=== PATIENT | female | born 1995 | race Caucasian/White ===

== ENCOUNTER 2019-05-17 18:51 | Emergency (ER) | payer BC, MEDICAID, OTHER ==
[~2019-05-17] VITALS: Ht 165.1 cm; Wt 52.0 kg
[~2019-05-17 18:51] MED LIST: BCP; HYDR-3965 PO; HYDR-4383 PO; VAL5T PO
[2019-05-17 19:42] LABS: BASOPHILS # (AUTO) 0.1 X10'3 (0-0.2); BASOPHILS % (AUTO) 1.1 % (0-1); EOSINOPHILS # (AUTO) 0.1 X10'3 (0-0.9); EOSINOPHILS % (AUTO) 1.3 % (0-6); HEMATOCRIT 41.7 % (35.0-45.0); HEMOGLOBIN 14.3 g/dl (12.0-16.0); LYMPHOCYTES # (AUTO) 2.4 X10'3 (1.1-4.8); LYMPHOCYTES % (AUTO) 29.6 % (21-51); MEAN CORPUSCULAR HEMOGLOBIN 31.5 PG (27.0-31.0); MEAN CORPUSCULAR HGB CONC 34.2 g/dL (33.0-36.5); MEAN CORPUSCULAR VOLUME 92.1 FL (78-98); MEAN PLATELET VOLUME 9.2 FL (7.4-10.4); MONOCYTES # (AUTO) 0.9 X10'3 (0-0.9); MONOCYTES % (AUTO) 11.7 % (2-12); NEUTROPHILS # (AUTO) 4.6 X10'3 (1.8-7.7); NEUTROPHILS % (AUTO) 56.3 % (42-75); PLATELET COUNT 268 X10'3 (140-440); RED BLOOD COUNT 4.53 X10'6 (4.20-5.60); RED CELL DISTRIBUTION WIDTH 12.7 % (11.5-14.5); WHITE BLOOD COUNT 8.1 X10'3 (4.5-11.0)
[2019-05-17 19:49] LABS: URINE HCG POSITIVE (NEG)
[2019-05-17] MEDS ORDERED: ondansetron/PF 4mg/2ml inj IV ONE (20:00)
[2019-05-17] MEDS ORDERED: normal saline 1000ML IV soln IVB ONE (20:00)
--- NOTE | 2019-05-17 20:04 | NUR ---
CALLED [facility] AT 20:04. SHE WILL BE COMING MAIA
[2019-05-17] MEDS: morphine 4 MG/ML inj SYRINge IV PRN ×2 (20:08→21:34)
[2019-05-17 20:12] LABS: CLARITY,URINE CLEAR (Clear); COLOR,URINE YELLOW (Yellow); GLUCOSE, URINE NEGATIVE (Neg); KETONES,URINE NEGATIVE (Neg); LEUKOCYTE ESTERASE ,URINE TRACE (Neg); NITRITES, URINE NEGATIVE (Neg); OCCULT BLOOD,URINE NEGATIVE (Neg); PROTEIN,URINE NEGATIVE (Neg); UROBILINOGEN,URINE 0.2 E.U/dL (0.2-1.0)
[2019-05-17 20:15] LABS: ALANINE AMINOTRANSFERASE 25 U/L (12-78); ALBUMIN 4.2 G/DL (3.4-5.0); ALBUMIN/GLOBULIN RATIO 1.4 (1.1-1.5); ALKALINE PHOSPHATASE 86 IU/L (46-116); ANION GAP 9 (8-16); ASPARTATE AMINO TRANSFERASE 18 U/L (10-37); BILIRUBIN,TOTAL 0.3 MG/DL (0.1-1.0); BLOOD UREA NITROGEN 14 MG/DL (7-18); CHLORIDE 105 MMOL/L (99-107); GLUCOSE 76 MG/DL (70-104); LIPASE 86 U/L (73-393); POTASSIUM 3.8 MMOL/L (3.5-5.1); SODIUM 141 MMOL/L (135-145); TOTAL PROTEIN 7.3 G/DL (6.4-8.2); eGFR > 90 ML/MIN
--- NOTE | 2019-05-17 20:16 | NUR ---
REPORTS PAIN COMES ON SUDDEN AND REALLY STRONG, SHARP/STABBING 8/10 PAIN TO RLQ AND INTO BACK. STARTED 1 MONTH AGO BUT WORSENED EARLY THIS WEEK.
[2019-05-17 20:19] LABS: UA COLLECTION TYPE CLN CATCH MIDSTREAM
[2019-05-17 20:40] LABS: BACTERIA,URINE FEW /HPF (Neg); RBC,URINE 0-2 /HPF (0-2); WBC,URINE 0-4 /HPF (0-4)
[2019-05-17 20:40] LABS: BETA HCG,QUANTITATIVE 762 mIU/ml
[2019-05-17 20:41] LABS: CAL OXALATE CRYSTALS 1+ /HPF (NEGATIVE); MUCUS STRANDS MANY /LPF (Neg); SQUAMOUS EPITHELIAL CELL,UR MANY /LPF (FEW)
[2019-05-17 20:43] LABS: YEAST FEW /HPF (NEGATIVE)
[2019-05-17] MEDS ORDERED: morphine 4 MG/ML inj SYRINge IV ONE ×4 (21:30→22:40)
--- NOTE | 2019-05-17 22:09 | NUR ---
CALLED NURIS MCCRACKEN AT 22:08. WAITING FOR DOC TO DOC CONSULT
--- NOTE | 2019-05-17 22:42 | NUR ---
NURIS ACCEPTED TRANS ED. TO ED. AT 22:43
--- NOTE | 2019-05-17 22:43 | NUR ---
CALLED [facility] AT 22:43 WITH ETA 30 MINS
[2019-05-17 23:00] VITALS: BP 139/82
== END 2019-05-17 23:03 | disposition short-term general hospital (02) ==
LOC: ER 18:52
DX: O26.891 Other specified pregnancy related conditions, first trimester (principal); N89.8 Other specified noninflammatory disorders of vagina; R10.31 Right lower quadrant pain; O99.321 Drug use complicating pregnancy, first trimester; O99.331 Smoking (tobacco) complicating pregnancy, first trimester; F17.200 Nicotine dependence, unspecified, uncomplicated; F12.90 Cannabis use, unspecified, uncomplicated; Z87.442 Personal history of urinary calculi; Z79.899 Other long term (current) drug therapy; Z3A.01 Less than 8 weeks gestation of pregnancy
CPT/HCPCS: 36415; 76775; 76801; 76830; 80053; 81001; 81025; 83690; 84702; 85025; 85610; 96374; 96375; 96376; 99285; J2270; J2405; J7030

== ENCOUNTER 2022-09-09 15:41 | Emergency (ER) | payer BC, MEDICAID ==
[~2022-09-09] VITALS: Ht 165.1 cm; Wt 63.0 kg
[~2022-09-09 15:41] MED LIST changes: +DIAZ5TAB22 PO; -VAL5T PO
[2022-09-09 16:25] LABS: BASOPHILS # (AUTO) 0.1 X10'3 (0-0.2); BASOPHILS % (AUTO) 0.6 % (0-1); EOSINOPHILS # (AUTO) 0.1 X10'3 (0-0.9); EOSINOPHILS % (AUTO) 1.4 % (0-6); HEMATOCRIT 45.8 % (35.0-45.0); HEMOGLOBIN 15.5 g/dl (12.0-16.0); LYMPHOCYTES # (AUTO) 1.9 X10'3 (1.1-4.8); LYMPHOCYTES % (AUTO) 23.3 % (21-51); MEAN CORPUSCULAR HEMOGLOBIN 30.1 PG (27.0-31.0); MEAN CORPUSCULAR HGB CONC 33.9 g/dL (33.0-36.5); MEAN CORPUSCULAR VOLUME 88.8 FL (78-98); MEAN PLATELET VOLUME 8.1 FL (7.4-10.4); MONOCYTES # (AUTO) 0.7 X10'3 (0-0.9); MONOCYTES % (AUTO) 8.8 % (2-12); NEUTROPHILS # (AUTO) 5.3 X10'3 (1.8-7.7); NEUTROPHILS % (AUTO) 65.9 % (42-75); PLATELET COUNT 337 X10'3 (140-440); RED BLOOD COUNT 5.16 X10'6 (4.20-5.60); RED CELL DISTRIBUTION WIDTH 12.3 % (11.5-14.5)
[2022-09-09 16:28] LABS: CLARITY,URINE CLEAR (Clear); COLOR,URINE YELLOW (Yellow); GLUCOSE, URINE NEGATIVE (Neg); KETONES,URINE NEGATIVE (Neg); LEUKOCYTE ESTERASE ,URINE NEGATIVE (Neg); NITRITES, URINE NEGATIVE (Neg); OCCULT BLOOD,URINE TRACE-INTACT (Neg); PROTEIN,URINE NEGATIVE (Neg); URINE HCG NEGATIVE (NEG); UROBILINOGEN,URINE 0.2 E.U/dL (0.2-1.0)
[2022-09-09 16:32] LABS: UA COLLECTION TYPE CLN CATCH MIDSTREAM
[2022-09-09 16:33] LABS: BACTERIA,URINE NONE SEEN /HPF (Neg); MUCUS STRANDS NONE SEEN /LPF (Neg); RBC,URINE 0-2 /HPF (0-2); SQUAMOUS EPITHELIAL CELL,UR FEW /LPF (FEW); WBC,URINE NONE SEEN /HPF (0-4)
[2022-09-09 16:41] LABS: ALANINE AMINOTRANSFERASE 20 U/L (12-78); ALBUMIN 4.7 G/DL (3.4-5.0); ALBUMIN/GLOBULIN RATIO 1.3 (1.1-1.5); ALKALINE PHOSPHATASE 88 IU/L (46-116); ANION GAP 8 (8-16); ASPARTATE AMINO TRANSFERASE 20 U/L (10-37); BILIRUBIN,TOTAL 0.5 MG/DL (0.1-1.0); BLOOD UREA NITROGEN 13 MG/DL (7-18); BUN/CREATININE RATIO 14.8 (6.6-38.0); CALCIUM 9.9 MG/DL (8.5-10.1); CHLORIDE 102 MMOL/L (99-107); CREATININE 0.88 MG/DL (0.40-0.90); GLUCOSE 96 MG/DL (70-104); LIPASE 112 U/L (73-393); POTASSIUM 3.5 MMOL/L (3.5-5.1); SODIUM 138 MMOL/L (135-145); TOTAL CARBON DIOXIDE 27.9 MMOL/L (24-32); TOTAL PROTEIN 8.2 G/DL (6.4-8.2); eGFR 77 ML/MIN
[2022-09-09] MEDS ORDERED: HYDROcodone/acetaminophen 10/325mg tab PO ONE (17:25)
[2022-09-09] MEDS ORDERED: dicyclomine 10 MG capsule PO ONE (18:55)
[2022-09-09] MEDS ORDERED: OXYC-145 PO (19:32)
[2022-09-09 19:51] VITALS: BP 133/96
== END 2022-09-09 19:53 | disposition home or self-care (01) ==
LOC: ER 15:43
DX: N20.0 Calculus of kidney (principal); N28.1 Cyst of kidney, acquired; K57.90 Diverticulosis of intestine, part unspecified, without perforation or abscess without bleeding; R10.30 Lower abdominal pain, unspecified; R07.1 Chest pain on breathing; F12.90 Cannabis use, unspecified, uncomplicated
CPT/HCPCS: 36415; 74176; 80053; 81001; 81025; 83690; 85025; 99284

== ENCOUNTER 2022-11-01 14:43 | Emergency (ER) | payer MEDICAID ==
[~2022-11-01] VITALS: Ht 165.1 cm; Wt 59.6 kg
[~2022-11-01 14:43] MED LIST changes: +OXYC-145 PO
[2022-11-01 18:48] LABS: MONOCYTES # (AUTO) 0.7 X10'3 (0-0.9); WHITE BLOOD COUNT 7.2 X10'3 (4.5-11.0)
[2022-11-01 18:50] LABS: BASOPHILS % (AUTO) 0.3 % (0-1); EOSINOPHILS % (AUTO) 0.4 % (0-6); HEMATOCRIT 45.3 % (35.0-45.0); HEMOGLOBIN 15.2 g/dl (12.0-16.0); LYMPHOCYTES # (AUTO) 1.8 X10'3 (1.1-4.8); LYMPHOCYTES % (AUTO) 25.2 % (21-51); MEAN CORPUSCULAR HEMOGLOBIN 30.1 PG (27.0-31.0); MEAN CORPUSCULAR HGB CONC 33.6 g/dL (33.0-36.5); MEAN CORPUSCULAR VOLUME 89.6 FL (78-98); MEAN PLATELET VOLUME 8.3 FL (7.4-10.4); MONOCYTES % (AUTO) 9.9 % (2-12); NEUTROPHILS # (AUTO) 4.6 X10'3 (1.8-7.7); NEUTROPHILS % (AUTO) 64.2 % (42-75); PLATELET COUNT 391 X10'3 (140-440); RED BLOOD COUNT 5.05 X10'6 (4.20-5.60); RED CELL DISTRIBUTION WIDTH 13.2 % (11.5-14.5)
--- NOTE | 2022-11-01 18:55 | NUR ---
ULTRASOUND IN W/ PT
[2022-11-01 19:06] LABS: ALANINE AMINOTRANSFERASE 12 U/L (12-78); ALBUMIN 5.2 G/DL (3.4-5.0); ALBUMIN/GLOBULIN RATIO 1.5 (1.1-1.5); ALKALINE PHOSPHATASE 75 IU/L (46-116); ANION GAP 14 (8-16); ASPARTATE AMINO TRANSFERASE 14 U/L (10-37); BILIRUBIN,TOTAL 0.6 MG/DL (0.1-1.0); BLOOD UREA NITROGEN 9 MG/DL (7-18); BUN/CREATININE RATIO 12.7 (10.0-20.0); CHLORIDE 103 MMOL/L (99-107); CREATININE 0.71 MG/DL (0.40-0.90); GLUCOSE 91 MG/DL (70-104); LIPASE 50 U/L (73-393); POTASSIUM 3.3 MMOL/L (3.5-5.1); SODIUM 142 MMOL/L (135-145); TOTAL CARBON DIOXIDE 25.1 MMOL/L (24-32); TOTAL PROTEIN 8.6 G/DL (6.4-8.2); eGFR > 90 ML/MIN
[2022-11-01 19:16] LABS: CLARITY,URINE CLEAR (Clear); COLOR,URINE YELLOW (Yellow); GLUCOSE, URINE NEGATIVE (Neg); KETONES,URINE 40 mg/dl (Neg); LEUKOCYTE ESTERASE ,URINE TRACE (Neg); NITRITES, URINE NEGATIVE (Neg); OCCULT BLOOD,URINE SMALL (Neg); PROTEIN,URINE NEGATIVE (Neg); URINE HCG NEGATIVE (NEG); UROBILINOGEN,URINE 0.2 E.U/dL (0.2-1.0)
[2022-11-01 19:17] LABS: UA COLLECTION TYPE CLN CATCH MIDSTREAM
[2022-11-01 19:23] LABS: BACTERIA,URINE 1+ /HPF (Neg); SQUAMOUS EPITHELIAL CELL,UR FEW /LPF (FEW)
[2022-11-01] MEDS ORDERED: morphine 4 MG/ML inj SYRINge IV ONE (19:35)
[2022-11-01] MEDS ORDERED: ondansetron/PF 4mg/2ml inj IV ONE (19:35)
[2022-11-01] MEDS ORDERED: LORazepam 2 mg/ml vial IV ONE (19:50)
[2022-11-01] MEDS ORDERED: ketorolac trometh. 30mg/ml inj. IV ONE ×2 (20:25→21:30)
[2022-11-01] MEDS ORDERED: iohexol 300mg/ml 100ml inj. ONE (20:39)
[2022-11-01] MEDS ORDERED: ibuprofen tablet 400 MG TABLET PO ONE (21:05)
[2022-11-01 21:11] VITALS: BP 133/87
[2022-11-01] MEDS ORDERED: diphenhydrAMINE 50 mg/ml inj IV ONE (21:30)
[2022-11-01] MEDS ORDERED: HYDROcodone/acetaminophen 10/325mg tab PO ONE (21:30)
[2022-11-01] MEDS ORDERED: OXYC-150 PO (21:34)
[2022-11-01] MEDS ORDERED: NITR100C6 PO (21:34)
[2022-11-01] MEDS ORDERED: IBUP-1986 PO (21:34)
== END 2022-11-01 21:56 | disposition home or self-care (01) ==
LOC: ER 14:43
DX: R19.09 Other intra-abdominal and pelvic swelling, mass and lump (principal); N30.00 Acute cystitis without hematuria; Z87.442 Personal history of urinary calculi; F12.10 Cannabis abuse, uncomplicated; Z88.6 Allergy status to analgesic agent; Z79.899 Other long term (current) drug therapy
CPT/HCPCS: 36415; 72193; 76830; 76856; 80053; 81001; 81025; 83690; 85025; 87077; 87088; 87186; 87210; 93976; 96374; 96375; 99285; J1200; J1885; J2060; J2270; J2405; J3490; Q9967

== ENCOUNTER 2022-11-28 14:48 | Emergency (ER) | payer MEDICAID ==
[~2022-11-28] VITALS: Ht 162.6 cm; Wt 56.8 kg
[~2022-11-28 14:48] MED LIST changes: +IBUP-1986 PO; +NITR100C6 PO; +OXYC-150 PO
[2022-11-28 16:06] LABS: CLARITY,URINE SLIGHTLY CLOUDY (Clear); COLOR,URINE YELLOW (Yellow); GLUCOSE, URINE NEGATIVE (Neg); KETONES,URINE NEGATIVE (Neg); LEUKOCYTE ESTERASE ,URINE NEGATIVE (Neg); NITRITES, URINE NEGATIVE (Neg); OCCULT BLOOD,URINE MODERATE (Neg); PROTEIN,URINE TRACE mg/dl (Neg); UROBILINOGEN,URINE 0.2 E.U/dL (0.2-1.0)
[2022-11-28 16:07] LABS: UA COLLECTION TYPE CLN CATCH MIDSTREAM; URINE HCG NEGATIVE (NEG)
[2022-11-28 16:30] LABS: BACTERIA,URINE FEW /HPF (Neg); TRANSITIONAL EPI CELLS,URINE FEW /HPF; WBC,URINE 0-4 /HPF (0-4)
[2022-11-28 16:31] LABS: SQUAMOUS EPITHELIAL CELL,UR MANY /LPF (FEW)
[2022-11-28] MEDS ORDERED: morphine 4 MG/ML inj SYRINge IM ONE (17:05)
[2022-11-28 17:33] LABS: BASOPHILS % (AUTO) 0.5 % (0-1); EOSINOPHILS # (AUTO) 0.1 X10'3 (0-0.9); HEMATOCRIT 43.1 % (35.0-45.0); HEMOGLOBIN 14.3 g/dl (12.0-16.0); LYMPHOCYTES # (AUTO) 1.3 X10'3 (1.1-4.8); LYMPHOCYTES % (AUTO) 13.9 % (21-51); MEAN CORPUSCULAR HEMOGLOBIN 29.5 PG (27.0-31.0); MEAN CORPUSCULAR HGB CONC 33.1 g/dL (33.0-36.5); MEAN CORPUSCULAR VOLUME 89.1 FL (78-98); MEAN PLATELET VOLUME 8.6 FL (7.4-10.4); MONOCYTES # (AUTO) 0.9 X10'3 (0-0.9); MONOCYTES % (AUTO) 9.2 % (2-12); NEUTROPHILS # (AUTO) 7.3 X10'3 (1.8-7.7); NEUTROPHILS % (AUTO) 75.4 % (42-75); PLATELET COUNT 343 X10'3 (140-440); RED BLOOD COUNT 4.84 X10'6 (4.20-5.60); RED CELL DISTRIBUTION WIDTH 12.6 % (11.5-14.5); WHITE BLOOD COUNT 9.7 X10'3 (4.5-11.0)
[2022-11-28 17:47] LABS: ALANINE AMINOTRANSFERASE 22 U/L (12-78); ALBUMIN 4.9 G/DL (3.4-5.0); ALBUMIN/GLOBULIN RATIO 1.3 (1.1-1.5); ALKALINE PHOSPHATASE 82 IU/L (46-116); ANION GAP 11 (8-16); ASPARTATE AMINO TRANSFERASE 25 U/L (10-37); BILIRUBIN,TOTAL 0.4 MG/DL (0.1-1.0); CALCIUM 10.1 MG/DL (8.5-10.1); CHLORIDE 98 MMOL/L (99-107); CREATININE 1.15 MG/DL (0.40-0.90); GLUCOSE 101 MG/DL (70-104); POTASSIUM 3.5 MMOL/L (3.5-5.1); SODIUM 139 MMOL/L (135-145); TOTAL CARBON DIOXIDE 30.1 MMOL/L (24-32); TOTAL PROTEIN 8.6 G/DL (6.4-8.2); eGFR 56 ML/MIN
[2022-11-28] MEDS ORDERED: GADOTERATE MEGLUMINE 7.5 MMOL/15 ML VIAL IV ONE (17:48)
[2022-11-28 17:51] LABS: BLOOD UREA NITROGEN 14 MG/DL (7-18); BUN/CREATININE RATIO 12.2 (10.0-20.0)
[2022-11-28] MEDS ORDERED: morphine 10mg/ml inj. IV ONE (18:50)
[2022-11-28] MEDS ORDERED: HYDROmorphone 1 mg/ml syringe IV ONE (19:35)
[2022-11-28] MEDS ORDERED: HYDROmorphone inj. 0.5 MG/0.5 ML DISP.SYRIN IV ONE (21:05)
[2022-11-28] MEDS ORDERED: diazepam inj 5 MG/ML inj. IV ONE (21:20)
[2022-11-28] MEDS ORDERED: fentaNYL/PF 50MCG/1 ML 2ML syringe IV ONE (21:20)
[2022-11-28] MEDS ORDERED: ketorolac trometh. 30mg/ml inj. IV ONE (21:20)
[2022-11-28 22:04] VITALS: BP 126/96
== END 2022-11-28 22:32 | disposition home or self-care (01) ==
LOC: ER 14:49
DX: C53.9 Malignant neoplasm of cervix uteri, unspecified (principal); R10.2 Pelvic and perineal pain; R97.1 Elevated cancer antigen 125 [CA 125]; F12.90 Cannabis use, unspecified, uncomplicated; Z87.442 Personal history of urinary calculi; Z98.890 Other specified postprocedural states; Z88.5 Allergy status to narcotic agent; Z79.899 Other long term (current) drug therapy
CPT/HCPCS: 36415; 72197; 80053; 81001; 81025; 85025; 86304; 96372; 96374; 96375; 99285; A9575; J1170; J1885; J2270; J2274; J3010; J3360; 99284

== ENCOUNTER 2023-04-17 13:24 | Outpatient (CLI) | payer MEDICAID | END 2023-04-17 23:59 | disposition home or self-care (01) | LOC: VAS 13:24 | PROVIDERS: ATTEND Radiology Radiation Oncology | DX: M79.661 Pain in right lower leg (principal) | CPT/HCPCS: 93971 ==